=== PATIENT | female | born 1960 | race Two or more races ===

== ENCOUNTER 2017-06-26 08:03 | Day surgery (SDC) | payer OTHER ==
[~2017-06-26 08:03] MED LIST: ASPIR 8181 MG PO; COZAAR50 MG PO; MELOXICAM7.5 MG PO; TYLENOL ARTHRI650 MG PO
[2017-06-26] MEDS ORDERED: MACROBID 100 M100 MG PO (11:26)
[2017-06-26] MEDS ORDERED: TYLENOL-CODEINE1 TA1 PO (11:27)
== END 2017-06-26 16:40 | disposition home or self-care (01) ==
LOC: CIR.AMB 08:03
DX: N81.11 Cystocele, midline (principal); N81.5 Vaginal enterocele; N81.6 Rectocele